=== PATIENT | male | born 1965 | race Caucasian/White ===

== ENCOUNTER 2021-09-23 14:43 | Emergency (ER) | payer OTHER ==
[~2021-09-23] VITALS: Ht 170.2 cm; Wt 131.5 kg
[~2021-09-23 14:43] MED LIST: CLARITIN-D 121 EACH PO; IBUPROFEN800 MG PO; TESSALON PERLE100 M1 PO
[2021-09-23] MEDS ORDERED: METOPROLOL SUCC25 MG PO (15:12)
[2021-09-23] MEDS ORDERED: ROSUVASTATIN CA20 MG PO (15:13)
[2021-09-23] MEDS ORDERED: VIBRAMYCIN100 MG PO (16:29)
== END 2021-09-23 17:58 | disposition home or self-care (01) ==
LOC: FER 14:43
DX: S61.011A Laceration without foreign body of right thumb without damage to nail, initial encounter (principal); I10 Essential (primary) hypertension; Z79.899 Other long term (current) drug therapy; Z88.2 Allergy status to sulfonamides; Z88.5 Allergy status to narcotic agent; Z23 Encounter for immunization; W45.8XXA Other foreign body or object entering through skin, initial encounter
CPT/HCPCS: 90471; 90714